=== PATIENT | male | born 1970 | race Caucasian/White ===

== ENCOUNTER 2017-06-07 14:29 | Emergency (ER) | payer OTHER ==
[~2017-06-07 14:29] MED LIST: CHLO10 PO; HYDR-3533 PO; LIDO5T TD; MOTR200T PO
[2017-06-07 14:31] VITALS: BP 113/66; PULSE 109; RESP 15; TEMP 98.5; O2SAT 97
--- NOTE | 2017-06-07 15:01 | PD ---
Physical Exam Time Seen by Provider: 14:59 Narrative 46 y/o male here for evaluation of 2 weeks of loose stool, vomiting, cp, abdominal pain, weakness. Seen at [facility] and reportedly told that he may have colon cancer but he has not followed up for further workup. He reports that he has been "self medicating" with alcohol. Vital signs reviewed. Seen at triage desk. Awaiting bed placement. Data Data Last Documented VS Vital Signs Date Time Temp Pulse Resp B/P Pulse Ox O2 Delivery O2 Flow Rate FiO2 06/07/17 14:31 98.5 109 15 113/66 97 Orders Electrocardiogram (06/07/17 15:01) Ckmb (Isoenzyme) Profile (06/07/17 15:) Complete Blood Count With Diff (06/07/17 15:) Comprehensive Metabolic Panel (06/07/17 15:01) Magnesium (Mg) (06/07/17 15:01) Prothrombin Time / Inr (Pt) (06/07/17 15:01) Act Partial Throm Time (Ptt) (06/07/17 15:) Troponin I (06/07/17 15:01) Lipase (06/07/17 15:01) Urinalysis - C+S If Indicated (06/07/17 15:01) MDM Medical Record Reviewed: Yes Supervised Visit with JO ANN: Puneet Barney Jun 07, 2017 15:01
--- NOTE | 2017-06-07 15:36 | PD ---
HPI Chief Complaint: GI Complaint Time Seen by Provider: 15:36 Travel History International Travel<30 days: No Contact w/Intl Traveler<30days: No Traveled to known affect area: No History of Present Illness HPI 36-year-old male presents to the emergency for evaluation of right lower, right upper, and left upper abdominal pain. Patient states he was seen and evaluated at a [facility] for this and told that he had colon cancer but he did not follow-up. Patient states he has had a 30 pound weight loss in the last 6 months. He states that he is nauseous and vomits everyday. Reports remote alcohol abuse history. States that he has chronic pancreatitis. Denies any fever or chills. No other symptoms to report. PFSH Past Medical History Blood Disorders: No Anxiety: Yes Depression: Yes Heart Rhythm Problems: No Cancer: No Cardiovascular Problems: Yes High Cholesterol: Yes Chest Pain: Yes Congestive Heart Failure: No Diminished Hearing: No Endocrine: No Gastrointestinal Disorders: Yes (vomits frequently(while drinking)) Genitourinary: Yes (hesistancy) Hypertension: Yes Immune Disorder: No Musculoskeletal: Yes (back pain) Neurologic: No Psychiatric: Yes Reproductive: No Respiratory: No Pancreatitis: Yes Past Surgical History Genitourinary Surgery: Yes (VASECTOMY) Other Surgery: Yes (right thumb reattachment) Social History Alcohol Use: Yes ( 2 pints of vodka daily) Tobacco Use: Yes Substance Use: No Allergies-Medications (Allergen,Severity, Reaction): Coded Allergies: No Known Allergies (Unverified , 11/26/15) Reported Meds & Prescriptions Reported Meds & Active Scripts Active Phenergan (Promethazine HCl) 25 Mg Tablet 25 Mg PO Q6H PRN Bentyl (Dicyclomine HCl) 10 Mg Cap 10 Mg PO TID PRN Reported Lortab (Hydrocodone-Acetaminophen) 10-325 Mg Tab 1 Tab PO Q4H PRN Review of Systems Except as stated in HPI: all other systems reviewed are Neg Physical Exam Narrative GENERAL: Well-nourished male patient, in no acute distress SKIN: Focused skin assessment warm/dry. HEAD: Atraumatic. Normocephalic. EYES: Pupils equal and round. No scleral icterus. No injection or drainage. ENT: No nasal bleeding or discharge. Mucous membranes pink and moist. NECK: Trachea midline. No JVD. CARDIOVASCULAR: Tachycardic rate and rhythm. No murmur appreciated. RESPIRATORY: No accessory muscle use. Clear to auscultation. Breath sounds equal bilaterally. GASTROINTESTINAL: Abdomen soft, upper quadrant tenderness with palpation.. Hepatic and splenic margins not palpable. MUSCULOSKELETAL: No obvious deformities. No clubbing. No cyanosis. No edema. NEUROLOGICAL: Awake and alert. No obvious cranial nerve deficits. Motor grossly within normal limits. Normal speech. PSYCHIATRIC: Appropriate mood and affect; insight and judgment normal. Data Data Last Documented VS Vital Signs Date Time Temp Pulse Resp B/P Pulse Ox O2 Delivery O2 Flow Rate FiO2 06/07/17 18:42 79 18 120/75 99 06/07/17 16:27 Room Air 06/07/17 14:31 98.5 Orders Electrocardiogram (06/07/17 15:01) Ckmb (Isoenzyme) Profile (06/07/17 15:01) Complete Blood Count With Diff (06/07/17 15:01) Comprehensive Metabolic Panel (06/07/17 15:01) Magnesium (Mg) (06/07/17 15:01) Prothrombin Time / Inr (Pt) (06/07/17 15:01) Act Partial Throm Time (Ptt) (06/07/17 15:01) Troponin I (06/07/17 15:01) Lipase (06/07/17 15:01) Urinalysis - C+S If Indicated (06/07/17 15:01) Ct Abd/Pel W Iv Contrast(Rout) (06/07/17 ) CKMB (06/07/17 15:30) CKMB% (06/07/17 15:30) Iohexol 350 Inj (Omnipaque 350 Inj) (06/07/17 17:14) Ketorolac Inj (Toradol Inj) (06/07/17 17:45) Sodium Chlor 0.9% 1000 Ml Inj (Ns 1000 M (06/07/17 17:45) Labs Laboratory Tests Test 06/07/17 06/07/17 15:30 15:40 White Blood Count 4.6 TH/MM3 Red Blood Count 3.89 MIL/MM3 Hemoglobin 12.3 GM/DL Hematocrit 36.1 % Mean Corpuscular Volume 92.7 FL Mean Corpuscular Hemoglobin 31.6 PG Mean Corpuscular Hemoglobin 34.0 % Concent Red Cell Distribution Width 17.2 % Platelet Count 173 TH/MM3 Mean Platelet Volume 7.1 FL Neutrophils (%) (Auto) 53.8 % Lymphocytes (%) (Auto) 38.3 % Monocytes (%) (Auto) 6.9 % Eosinophils (%) (Auto) 0.5 % Basophils (%) (Auto) 0.5 % Neutrophils # (Auto) 2.5 TH/MM3 Lymphocytes # (Auto) 1.8 TH/MM3 Monocytes # (Auto) 0.3 TH/MM3 Eosinophils # (Auto) 0.0 TH/MM3 Basophils # (Auto) 0.0 TH/MM3 CBC Comment DIFF FINAL Differential Comment Prothrombin Time 11.1 SEC Prothromb Time International 1.0 RATIO Ratio Activated Partial 27.2 SEC Thromboplast Time Sodium Level 137 MEQ/L Potassium Level 4.1 MEQ/L Chloride Level 101 MEQ/L Carbon Dioxide Level 24.3 MEQ/L Anion Gap 12 MEQ/L Blood Urea Nitrogen 6 MG/DL Creatinine 0.80 MG/DL Estimat Glomerular Filtration 103 ML/MIN Rate Random Glucose 100 MG/DL Calcium Level 9.1 MG/DL Magnesium Level 1.9 MG/DL Total Bilirubin 0.9 MG/DL Aspartate Amino Transf 71 U/L (AST/SGOT) Alanine Aminotransferase 25 U/L (ALT/SGPT) Alkaline Phosphatase 91 U/L Total Creatine Kinase 122 U/L Creatine Kinase MB 0.9 NG/ML Troponin I LESS THAN 0.02 NG/ML Total Protein 8.0 GM/DL Albumin 3.5 GM/DL Lipase 49 U/L Urine Color YELLOW Urine Turbidity CLEAR Urine pH 5.5 Urine Specific [place] 1.029 Urine Protein TRACE mg/dL Urine Glucose (UA) NEG mg/dL Urine Ketones TRACE mg/dL Urine Occult Blood NEG Urine Nitrite NEG Urine Bilirubin NEG Urine Urobilinogen LESS THAN 2.0 MG/DL Urine Leukocyte Esterase NEG Urine WBC 1 /hpf Urine Squamous Epithelial <1 /hpf Cells Urine Hyaline Casts 20 /lpf Urine Mucus MOD /lpf Microscopic Urinalysis Comment CULT NOT INDICATED MDM Medical Decision Making Medical Screen Exam Complete: Yes Emergency Medical Condition: Yes Medical Record Reviewed: Yes Differential Diagnosis Gastritis versus gastroenteritis versus biliary colic versus UTI versus renal calculi Narrative Course 46-year-old male presents to emergency department for evaluation of abdominal pain. Patient appears without distress. He is mildly tachycardic. Heart rate normalizes after IV normal saline bolus. Laboratory Tests Test 06/07/17 06/07/17 15:30 15:40 White Blood Count 4.6 TH/MM3 Red Blood Count 3.89 MIL/MM3 Hemoglobin 12.3 GM/DL Hematocrit 36.1 % Mean Corpuscular Volume 92.7 FL Mean Corpuscular Hemoglobin 31.6 PG Mean Corpuscular Hemoglobin 34.0 % Concent Red Cell Distribution Width 17.2 % Platelet Count 173 TH/MM3 Mean Platelet Volume 7.1 FL Neutrophils (%) (Auto) 53.8 % Lymphocytes (%) (Auto) 38.3 % Monocytes (%) (Auto) 6.9 % Eosinophils (%) (Auto) 0.5 % Basophils (%) (Auto) 0.5 % Neutrophils # (Auto) 2.5 TH/MM3 Lymphocytes # (Auto) 1.8 TH/MM3 Monocytes # (Auto) 0.3 TH/MM3 Eosinophils # (Auto) 0.0 TH/MM3 Basophils # (Auto) 0.0 TH/MM3 CBC Comment DIFF FINAL Differential Comment Prothrombin Time 11.1 SEC Prothromb Time International 1.0 RATIO Ratio Activated Partial 27.2 SEC Thromboplast Time Sodium Level 137 MEQ/L Potassium Level 4.1 MEQ/L Chloride Level 101 MEQ/L Carbon Dioxide Level 24.3 MEQ/L Anion Gap 12 MEQ/L Blood Urea Nitrogen 6 MG/DL Creatinine 0.80 MG/DL Estimat Glomerular Filtration 103 ML/MIN Rate Random Glucose 100 MG/DL Calcium Level 9.1 MG/DL Magnesium Level 1.9 MG/DL Total Bilirubin 0.9 MG/DL Aspartate Amino Transf 71 U/L (AST/SGOT) Alanine Aminotransferase 25 U/L (ALT/SGPT) Alkaline Phosphatase 91 U/L Total Creatine Kinase 122 U/L Creatine Kinase MB 0.9 NG/ML Troponin I LESS THAN 0.02 NG/ML Total Protein 8.0 GM/DL Albumin 3.5 GM/DL Lipase 49 U/L Urine Color YELLOW Urine Turbidity CLEAR Urine pH 5.5 Urine Specific [place] 1.029 Urine Protein TRACE mg/dL Urine Glucose (UA) NEG mg/dL Urine Ketones TRACE mg/dL Urine Occult Blood NEG Urine Nitrite NEG Urine Bilirubin NEG Urine Urobilinogen LESS THAN 2.0 MG/DL Urine Leukocyte Esterase NEG Urine WBC 1 /hpf Urine Squamous Epithelial <1 /hpf Cells Urine Hyaline Casts 20 /lpf Urine Mucus MOD /lpf Microscopic Urinalysis Comment CULT NOT INDICATED Last Impressions Abdomen/Pelvis CT 06/07/17 0000 Signed Impressions: Service Date/Time: Wednesday, June 07, 2017 17:24 - CONCLUSION: Chronic changes of the lower thoracic and upper lumbar spine with mild wedging of the L1 vertebrae chronic in nature, otherwise unremarkable. Toya Hawkins MD I have discussed findings with the patient. He is discharged to follow-up with a nut chopper. He agrees to return immediately with any acute worsening symptoms. Diagnosis Primary Impression: Gastritis Qualified Code: K29.20 - Chronic alcoholic gastritis without hemorrhage Additional Impressions: Diarrhea Qualified Code: R19.7 - Diarrhea, unspecified type Abdominal pain Qualified Code: R10.84 - Generalized abdominal pain Alcohol abuse Referrals: [facility] (Out patient) Nutrition Consultant Primary Care Physician Patient Instructions: Diet for Stomach Ulcers and Gastritis (ED), General Instructions Additional Instructions: [place]win diet Advance as tolerated Follow-up with the primary care provider Avoid alcohol use Return immediately with any acute worsening of symptoms Med/Other Pt SpecificInfo: Prescription(s) given Scripts Promethazine (Phenergan)25 Mg [id number] Mg PO Q6H PRN (NAUSEA OR VOMITING) #12 TAB Ref 0 Prov:Nannette Land 06/07/17 Dicyclomine (Bentyl)10 Mg Cap10 Mg PO TID PRN (Bowel Management) #15 CAP Ref 0 Prov:Nannette Land 06/07/17 Disposition: 01 DISCHARGE HOME Condition: Stable Nannette Land Jun 07, 2017 15:36
[2017-06-07 15:48] LABS: AUTOMATED NEUTROPHIL # 2.5 TH/MM3 (1.8-7.7); BASOPHIL % 0.5 % (0.0-2.0); EOSINOPHIL % 0.5 % (0.0-4.0); HEMATOCRIT 36.1 % (39.0-51.0); HEMO FLAGS DIFF FINAL; LYMPH % 38.3 % (9.0-44.0); LYMPHOCYTE # 1.8 TH/MM3 (1.0-4.8); MEAN CELL VOLUME 92.7 FL (80.0-100.0); MEAN CORPUSCULAR HEMOGLOBIN 31.6 PG (27.0-34.0); MONO % 6.9 % (0.0-8.0); NEUT % 53.8 % (16.0-70.0); PLATELET COUNT 173 TH/MM3 (150-450); RED BLOOD COUNT 3.89 MIL/MM3 (4.50-5.90); RED CELL DISTRIBUTION WIDTH 17.2 % (11.6-17.2); WHITE BLOOD COUNT 4.6 TH/MM3 (4.0-11.0)
[2017-06-07 15:55] LABS: BLOOD, URINE NEG (NEG); COMMENT (UR) CULT NOT INDICATED; CULTURE IF INDICATED CULT NOT INDICATED; GLUCOSE,URINE NEG (NEG); HYALINE CAST, URINE 20 /lpf (RARE); KETONE, URINE TRACE mg/dL (NEG); MUCUS URINE MOD /lpf (OCC); NITRITE,URINE NEG (NEG); PH, URINE 5.5 (5.0-8.5); SQUAMOUS EPITHELIAL CELL URINE <1 /hpf (0-5); URINE COLOR YELLOW (YELLW/STRAW)
[2017-06-07 16:03] LABS: ALT (GPT) 25 U/L (12-78)
[2017-06-07 16:04] LABS: APTT (PATIENT) 27.2 SEC (24.3-30.1); PROTHROMBIN TIME - PATIENT 11.1 SEC (9.8-11.6)
[2017-06-07 16:06] LABS: ANION GAP 12 MEQ/L (5-15); AST (GOT) 71 U/L (15-37); BICARBONATE 24.3 MEQ/L (21.0-32.0); BLOOD UREA NITROGEN 6 MG/DL (7-18); CHLORIDE 101 MEQ/L (98-107); GLOMERULAR FILTRATION RATE 103 ML/MIN (>89); MAGNESIUM 1.9 MG/DL (1.5-2.5); POTASSIUM 4.1 MEQ/L (3.5-5.1); SODIUM (NA) 137 MEQ/L (136-145)
[2017-06-07 16:08] LABS: ALKALINE PHOSPHATASE 91 U/L (45-117); CREATINE KINASE 122 U/L (39-308); TOTAL BILIRUBIN ADULT 0.9 MG/DL (0.2-1.0)
[2017-06-07 16:20] LABS: CKMB 0.9 NG/ML (0.5-3.6)
[2017-06-07 16:27] VITALS: BP 157/109; PULSE 83; RESP 18; O2SAT 96
[2017-06-07] MEDS ORDERED: HYDR-3535 PO (17:05)
[2017-06-07] MEDS ORDERED: IOHEXOL 350 MG/ML 10 ML VIAL (for RAD DIAG) IV ONE (17:14)
[2017-06-07] MEDS ORDERED: KETOROLAC TROMETHAMINE 30 MG/ML (IVP) VIAL IV PUSH ONE (17:45)
[2017-06-07] MEDS ORDERED: SODIUM CHLOR 0.9% 1000 ML INJ 1,000 ML IV ONE (17:45)
--- NOTE | 2017-06-07 17:56 | RADRPT ---
EXAM DATE/TIME: 06/07/2017 17:24 [facility] COMPARISON: No previous studies available for comparison. INDICATIONS : Lower abdomen pain with nausea, vomiting and diarrhea. IV CONTRAST: 95 cc Omnipaque 350 (iohexol) IV ORAL CONTRAST: No oral contrast ingested. RADIATION DOSE: 13.25 CTDIvol (mGy) MEDICAL HISTORY : Pancreatitis. Hypertension. SURGICAL HISTORY : None. ENCOUNTER: Initial ACUITY: 1 week PAIN SCALE: 5/10 LOCATION: Bilateral lower quadrant TECHNIQUE: Volumetric scanning of the abdomen and pelvis was performed. Using automated exposure control and ad justment of the mA and/or kV according to patient size, radiation dose was kept as low as reasonably achievable to obtain optimal diagnostic quality images. DICOM format image data is available electro nically for review and comparison. FINDINGS: CT Abdomen: The liver, spleen, left kidney, adrenals are unremarkable. There is no evidence for any a ppreciable pathological adenopathy, free fluid, or bowel obstruction. The pancreas is very atrophic in appearance and most of the body and tail are basically absent with calcifications in residual panc reatic tissue in the head of the pancreas. Incidental note is made of a subcentimeter cyst in the rig ht kidney. The L1 transverse processes are not fused may be on a congenital basis or due to old traum a. There is slight deformity of multiple lower thoracic and upper lumbar endplates chronic in nature with anterior wedging of L1 vertebrae. CT pelvis: There is no evidence for mass, abscess formation, or any significant adenopathy within the pelvis. The prostate gland is inhomogeneous and measures 3.4 x 4.8 cm in AP and transverse diameters and nonspecific. CONCLUSION: Chronic changes of the lower thoracic and upper lumbar spine with mild wedging of the L1 vertebrae chronic in nature, otherwise unremarkable. Toya Hawkins MD on June 07, 2017 at 17:51 Board Certified Radiologist. This report was verified electronically.
[2017-06-07] MEDS ORDERED: PROM25TA10 PO (18:03)
[2017-06-07] MEDS ORDERED: DICY10 PO (18:03)
[2017-06-07 18:42] VITALS: BP 120/75
--- NOTE | 2017-06-07 21:55 | EKG ---
Date Performed: 06/07/2017 Time Performed: 15:48:13 PTAGE: 46 years EKG: Sinus rhythm NORMAL ECG PREVIOUS TRACING : 11/26/2015 03.01 Compared to prior tracing no significant change DOCTOR: Dmitri Hansen Interpretating Date/Time 06/07/2017 21:54:37
== END 2017-06-07 19:23 | disposition home or self-care (01) ==
LOC: NEPC 14:29
DX: K29.20 Alcoholic gastritis without bleeding (principal); R19.7 Diarrhea, unspecified; F10.10 Alcohol abuse, uncomplicated; I10 Essential (primary) hypertension; Z72.0 Tobacco use
CPT/HCPCS: 74177; 80053; 81001; 82550; 82552; 83690; 83735; 84484; 85025; 85610; 85730; 93005; 96374; 99285; J1885; J7030; Q9967

== ENCOUNTER 2017-07-17 13:22 | Emergency (ER) | payer SELFPAY ==
[~2017-07-17] VITALS: Ht 182.9 cm; Wt 78.2 kg
[~2017-07-17 13:22] MED LIST changes: -CHLO10 PO; +DICY10 PO; -HYDR-3533 PO; +HYDR-3535 PO; -LIDO5T TD; -MOTR200T PO; +PROM25TA10 PO
[2017-07-17] MEDS ORDERED: IOHEXOL 350 MG/ML 10 ML VIAL (for RAD DIAG) IVCONTRAST ONE (13:23)
[2017-07-17 13:51] VITALS: BP 144/85; PULSE 77; RESP 18; TEMP 98.8; O2SAT 99
[2017-07-17] MEDS ORDERED: LORA-392 PO (13:56)
--- NOTE | 2017-07-17 15:11 | PD ---
HPI Chief Complaint: Abdominal Pain Time Seen by Provider: 15:04 Travel History International Travel<30 days: No Contact w/Intl Traveler<30days: No Traveled to known affect area: No History of Present Illness HPI Patient presents with complaints of abdominal pain for approximately one week. Reports frequent episodes of pancreatitis. Last alcoholic beverage 5 days ago. Reports nausea and vomiting. Reports loose stools. Last bowel movement 3-4 days ago. States that it was dark and loose. Denies any gross blood per emesis or stool. Reports hematuria without frequency or pain. States he took his last Percocet at 9 AM this morning. Reports a history of anxiety. States evaluation and workup at [facility] today but they were not treating him right so he left AMA. [facility] Past Medical History Blood Disorders: No Anxiety: Yes Depression: Yes Heart Rhythm Problems: No Cancer: No Cardiovascular Problems: Yes High Cholesterol: Yes Chest Pain: Yes Congestive Heart Failure: No Diminished Hearing: No Endocrine: No Gastrointestinal Disorders: Yes (vomits frequently(while drinking)) Genitourinary: Yes (hesistancy) Hypertension: Yes Immune Disorder: No Musculoskeletal: Yes (back pain) Neurologic: No Psychiatric: Yes Reproductive: No Respiratory: No Immunizations Current: Yes Pancreatitis: Yes Influenza Vaccination: Yes ?: Not Past Surgical History Genitourinary Surgery: Yes (VASECTOMY) Other Surgery: Yes (right thumb reattachment) Social History Alcohol Use: Yes ( 2 pints of vodka daily, ETOH ABUSE ) Tobacco Use: Yes (DIP ) Substance Use: No Allergies-Medications (Allergen,Severity, Reaction): Coded Allergies: No Known Allergies (Unverified , 11/26/15) Reported Meds & Prescriptions Reported Meds & Active Scripts Active Phenergan (Promethazine HCl) 25 Mg Tablet 25 Mg PO Q6H PRN Bentyl (Dicyclomine HCl) 10 Mg Cap 10 Mg PO TID PRN Reported Ativan (Lorazepam) 0.5 Mg Tab 0.5 Mg PO Q6H PRN Lortab (Hydrocodone-Acetaminophen) 10-325 Mg Tab 1 Tab PO Q4H PRN Review of Systems General / Constitutional: No: Fever Eyes: No: Visual changes HENT: No: Headaches Cardiovascular: No: Chest Pain or Discomfort Respiratory: No: Shortness of Breath Gastrointestinal: Positive: Nausea, Vomiting, Diarrhea, Abdominal Pain Genitourinary: Positive: Hematuria, No: Dysuria Musculoskeletal: No: Pain Skin: No Rash Neurologic: No: Weakness Psychiatric: No: Depression Endocrine: No: Polydipsia Hematologic/Lymphatic: No: Easy Bruising Physical Exam Narrative GENERAL: Poorly nourished SKIN: Focused skin assessment warm/dry. HEAD: Normocephalic. EYES: No scleral icterus. No injection or drainage. NECK: Supple, trachea midline. No JVD or lymphadenopathy. CARDIOVASCULAR: Regular rate and rhythm without murmurs, gallops, or rubs. RESPIRATORY: Breath sounds equal bilaterally. No accessory muscle use. GASTROINTESTINAL: Abdomen soft, diffusely tender over the entire abdomen nondistended. MUSCULOSKELETAL: No cyanosis, or edema. BACK: Nontender without obvious deformity. No CVA tenderness. Data Data Last Documented VS Vital Signs Date Time Temp Pulse Resp B/P (MAP) Pulse Ox O2 Delivery O2 Flow Rate FiO2 07/17/17 15:55 69 16 121/88 (99) 96 07/17/17 13:51 98.8 Orders Orders Complete Blood Count With Diff (07/17/17 15:04) Comprehensive Metabolic Panel (07/17/17 15:04) Lipase (07/17/17 15:04) Lactic Acid (07/17/17 15:04) Urinalysis - C+S If Indicated (07/17/17 15:04) Ct Abd/Pel W Iv Contrast(Rout) (07/17/17 15:04) Iv Access Insert/Monitor (07/17/17 15:04) Ecg Monitoring (07/17/17 15:04) Oximetry (07/17/17 15:04) NPO (07/17/17 15:04) Hydromorphone Pf Inj (Dilaudid Pf Inj) (07/17/17 15:15) Ondansetron Inj (Zofran Inj) (07/17/17 15:15) Pantoprazole Inj (Protonix Inj) (07/17/17 15:15) Sodium Chloride 0.9% Flush (Ns Flush) (07/17/17 15:15) Famotidine Inj (Pepcid Inj) (07/17/17 15:15) Oral Contrast - Adult (07/17/17 15:09) Diatrizoate Liq ( Gastroview Liq) (07/17/17 15:33) Labs Laboratory Tests Test 07/17/17 15:30 07/17/17 15:43 [facility] Medical Decision Making Medical Screen Exam Complete: Yes Emergency Medical Condition: Yes Differential Diagnosis Pancreatitis, small bowel obstruction, gastroenteritis, colitis Narrative Course Assessment and plan discussed with patient at bedside. Physician Communication Physician Communication Case discussed and care transferred to Adán Mi MD Jul 17, 2017 15:11
[2017-07-17] MEDS ORDERED: FAMOTIDINE 20 MG/2 ML VIAL IV PUSH ONE (15:15)
[2017-07-17] MEDS ORDERED: SODIUM CHLORIDE 0.9% FLUSH 10 ML FLUSH IV FLUSH PRN (15:15)
[2017-07-17] MEDS ORDERED: HYDROmorphone HCL PF 2 MG/ML VIAL IVS ONE (15:15)
[2017-07-17] MEDS ORDERED: PANTOPRAZOLE SODIUM 40 MG VIAL IVP ONE (15:15)
[2017-07-17] MEDS ORDERED: ONDANSETRON HCL 4 MG/2 ML VIAL IVP ONE (15:15)
[2017-07-17] MEDS ORDERED: DIATRIZOATE MEGLUM/DIATRIZOATE SOD 9 ML CUP ONE (15:33)
[2017-07-17 15:55] VITALS: BP 121/88; PULSE 69; RESP 16; O2SAT 96
[2017-07-17 15:55] LABS: BLOOD, URINE LARGE (NEG); GLUCOSE,URINE NEG (NEG); KETONE, URINE NEG (NEG); NITRITE,URINE NEG (NEG); PH, URINE 5.5 (5.0-8.5)
[2017-07-17 16:00] LABS: CHLORIDE 92 MEQ/L (98-107); SODIUM (NA) 127 MEQ/L (136-145)
[2017-07-17 16:03] LABS: ANION GAP 9 MEQ/L (5-15); BICARBONATE 26.5 MEQ/L (21.0-32.0)
[2017-07-17 16:04] LABS: BLOOD UREA NITROGEN 10 MG/DL (7-18)
[2017-07-17 16:06] LABS: ALT (GPT) 97 U/L (12-78); AST (GOT) 350 U/L (15-37); GLOMERULAR FILTRATION RATE 100 ML/MIN (>89)
[2017-07-17 16:08] LABS: TOTAL BILIRUBIN ADULT 2.5 MG/DL (0.2-1.0)
[2017-07-17 16:09] LABS: ALKALINE PHOSPHATASE 228 U/L (45-117)
[2017-07-17 16:18] LABS: METHOD OF COLLECTION CLEAN CATCH; URINE COLOR YELLOW (YELLW/STRAW)
[2017-07-17 16:25] LABS: SQUAMOUS EPITHELIAL CELL URINE 0-5 /hpf (0-5)
[2017-07-17 16:26] LABS: COMMENT (UR) CULT NOT INDICATED; CULTURE IF INDICATED CULT NOT INDICATED
[2017-07-17 16:43] LABS: AUTOMATED NEUTROPHIL # 2.1 TH/MM3 (1.8-7.7); BASOPHIL % 1.2 % (0.0-2.0); EOSINOPHIL % 0.8 % (0.0-4.0); HEMATOCRIT 34.2 % (39.0-51.0); LYMPH % 38.8 % (9.0-44.0); LYMPHOCYTE # 1.5 TH/MM3 (1.0-4.8); MEAN CELL VOLUME 102.8 FL (80.0-100.0); MEAN CORPUSCULAR HEMOGLOBIN 34.8 PG (27.0-34.0); MEAN CORPUSCULAR HGB CONC 33.8 % (32.0-36.0); MONO % 8.2 % (0.0-8.0); PLATELET COUNT 82 TH/MM3 (150-450); RED BLOOD COUNT 3.33 MIL/MM3 (4.50-5.90); RED CELL DISTRIBUTION WIDTH 17.7 % (11.6-17.2); WHITE BLOOD COUNT 3.9 TH/MM3 (4.0-11.0)
[2017-07-17 16:52] LABS: HEMO FLAGS AUTO DIFF
[2017-07-17 17:07] LABS: POTASSIUM 4.3 MEQ/L (3.5-5.1)
[2017-07-17 17:13] LABS: PLATELET ESTIMATE SMEAR LOW (NORMAL); PLATELET MORPHOLOGY NORMAL (NORMAL); SCAN/DIFF AUTO DIFF CONFIRMED
[2017-07-17 17:41] VITALS: BP 119/79; PULSE 60; O2SAT 100
--- NOTE | 2017-07-17 17:47 | RADRPT ---
EXAM DATE/TIME: 07/17/2017 17:20 [facility] COMPARISON: CT ABDOMEN & PELVIS W CONTRAST, June 07, 2017, 17:24. INDICATIONS : Mid abdominal pain radiaitng to back and down left leg. IV CONTRAST: 90 cc Omnipaque 350 (iohexol) IV ORAL CONTRAST: Prescribed oral contrast ingested. RADIATION DOSE: 9.92 CTDIvol (mGy) MEDICAL HISTORY : Hypertension. Hypercholesterolemia. SURGICAL HISTORY : None. ENCOUNTER: Initial ACUITY: 1 day PAIN SCALE: 5/10 LOCATION: middle abdomen TECHNIQUE: Volumetric scanning of the abdomen and pelvis was performed. Using automated exposure control and adjustment of the mA and/or kV according to patient size, radiation dose was kept as low as reasonably achievable to obtain optimal diagnostic quality images. DICOM format image data is av ailable electronically for review and comparison. FINDINGS: CT Abdomen: The spleen, kidneys, adrenals are unremarkable. There are calcifications in the head of t he pancreas and the body and tail of the pancreas is significantly atrophic basically absent. There i s no pancreatic mass. The liver is fatty without focal lesions or technique. There is no evidence fo r any appreciable pathological adenopathy, free fluid, or bowel obstruction. There is probable flow artifact in the SMV and parts of the portal vein. Again noted are slight wedging of multiple vertebra e are chronic changes of the patient's spine. CT pelvis: There is no evidence for mass, abscess formation, or any significant adenopathy within the pelvis. The prostate gland is inhomogeneous and measures 3.3 x 3.6 cm in AP and transverse diameters and nonspecific. There is moderate amount of stool throughout the colon. CONCLUSION: No appreciable change. Toya Hawkins MD on July 17, 2017 at 17:39 Board Certified Radiologist. This report was verified electronically.
[2017-07-17] MEDS ORDERED: CHLO25CA9 PO (18:20)
--- NOTE | 2017-07-17 18:23 | PD ---
Physical Exam Date Seen by Provider: Jul 17, 2017 Time Seen by Provider: 18:21 Narrative This 46-year-old male had presented with complaint of abdominal pain. He has a history of pancreatitis. He was seen initially by Dr. Pandya. His lipase is normal. He does have some elevation of his liver function tests with a total bilirubin of 2.5, AST of 350 and ALT of 97. He does drink alcohol. His CT scan shows calcifications in the pancreas but otherwise has not changed from previous scans. The patient is requesting pain medicine but I have told her that given pain medicine. He is complaining also is going to alcohol withdrawal. I will prescribe some Librium. I have told the patient that I think his problems are related to alcohol and that he needs to go to detox at [facility]. Data Data Last Documented VS Vital Signs Date Time Temp Pulse Resp B/P (MAP) Pulse Ox O2 Delivery O2 Flow Rate FiO2 07/17/17 17:41 60 119/79 (92) 100 07/17/17 15:55 16 07/17/17 13:51 98.8 Orders Orders Complete Blood Count With Diff (07/17/17 15:04) Comprehensive Metabolic Panel (07/17/17 15:04) Lipase (07/17/17 15:04) Lactic Acid (07/17/17 15:04) Urinalysis - C+S If Indicated (07/17/17 15:04) Ct Abd/Pel W Iv Contrast(Rout) (07/17/17 15:04) Iv Access Insert/Monitor (07/17/17 15:04) Ecg Monitoring (07/17/17 15:04) Oximetry (07/17/17 15:04) NPO (07/17/17 15:04) Hydromorphone Pf Inj (Dilaudid Pf Inj) (07/17/17 15:15) Ondansetron Inj (Zofran Inj) (07/17/17 15:15) Pantoprazole Inj (Protonix Inj) (07/17/17 15:15) Sodium Chloride 0.9% Flush (Ns Flush) (07/17/17 15:15) Famotidine Inj (Pepcid Inj) (07/17/17 15:15) Oral Contrast - Adult (07/17/17 15:09) Diatrizoate Liq (Md Gastroview Liq) (07/17/17 15:33) Iohexol 350 Inj (Omnipaque 350 Inj) (07/17/17 13:23) Chlordiazepoxide (Librium) (07/17/17 18:30) Labs Laboratory Tests Test 07/17/17 15:30 07/17/17 15:43 07/17/17 16:35 Urine Collection Type CLEAN CATCH Urine Color YELLOW Urine Turbidity CLEAR Urine pH 5.5 Urine Specific [place] 1.008 Urine Protein NEG mg/dL Urine Glucose (UA) NEG mg/dL Urine Ketones NEG mg/dL Urine Occult Blood LARGE Urine Nitrite NEG Urine Bilirubin NEG Urine Leukocyte Esterase NEG Urine RBC 10-14 /hpf Urine Squamous Epithelial Cells 0-5 /hpf Microscopic Urinalysis Comment CULT NOT INDICATED Urine Collection Time 15:30 Blood Urea Nitrogen 10 MG/DL Creatinine 0.82 MG/DL Random Glucose 103 MG/DL Total Protein 7.5 GM/DL Albumin 3.2 GM/DL Calcium Level 8.7 MG/DL Alkaline Phosphatase 228 U/L Aspartate Amino Transf (AST/SGOT) 350 U/L Alanine Aminotransferase (ALT/SGPT) 97 U/L Total Bilirubin 2.5 MG/DL Sodium Level 127 MEQ/L Potassium Level 4.3 MEQ/L Chloride Level 92 MEQ/L Carbon Dioxide Level 26.5 MEQ/L Anion Gap 9 MEQ/L Estimat Glomerular Filtration Rate 100 ML/MIN Lactic Acid Level 0.9 mmol/L Lipase 22 U/L White Blood Count 3.9 TH/MM3 Red Blood Count 3.33 MIL/MM3 Hemoglobin 11.6 GM/DL Hematocrit 34.2 % Mean Corpuscular Volume 102.8 FL Mean Corpuscular Hemoglobin 34.8 PG Mean Corpuscular Hemoglobin Concent 33.8 % Red Cell Distribution Width 17.7 % Platelet Count 82 TH/MM3 Mean Platelet Volume 6.8 FL Neutrophils (%) (Auto) 51.0 % Lymphocytes (%) (Auto) 38.8 % Monocytes (%) (Auto) 8.2 % Eosinophils (%) (Auto) 0.8 % Basophils (%) (Auto) 1.2 % Neutrophils # (Auto) 2.1 TH/MM3 Lymphocytes # (Auto) 1.5 TH/MM3 Monocytes # (Auto) 0.3 TH/MM3 Eosinophils # (Auto) 0.0 TH/MM3 Basophils # (Auto) 0.0 TH/MM3 CBC Comment AUTO DIFF Differential Comment AUTO DIFF CONFIRMED Platelet Estimate LOW Platelet Morphology Comment NORMAL MDM Medical Record Reviewed: Yes Supervised Visit with JO ANN: No Differential Diagnosis Differential includes chronic alcohol abuse, chronic pancreatitis, gastritis Narrative Course Workup is negative. Patient is stable for discharge. He has having some tremors now and I will put her on some Librium awake and alert Diagnosis Primary Impression: Alcohol withdrawal Qualified Codes: F10.230 - Alcohol dependence with withdrawal, uncomplicated Additional Impression: Alcohol abuse Scripts Chlordiazepoxide HCl (Chlordiazepoxide HCl) 25 Mg Capsule 1 TAB PO Q6HR for TREMORS, #10 Prov: Luipllo Vegas MD 07/17/17 Disposition: DISCHARGE HOME Condition: Stable Lupillo Vegas MD Jul 17, 2017 18:23
[2017-07-17] MEDS ORDERED: chlordiazePOXIDE 25 MG CAP PO ONE (19:00)
== END 2017-07-17 19:38 | disposition home or self-care (01) ==
LOC: PHED 13:22
DX: F10.230 Alcohol dependence with withdrawal, uncomplicated (principal); E78.00 Pure hypercholesterolemia, unspecified; I10 Essential (primary) hypertension; Z87.19 Personal history of other diseases of the digestive system; Z72.0 Tobacco use
CPT/HCPCS: 74177; 80053; 81001; 83605; 83690; 85025; 96374; 96375; 99285; C9113; J1170; J2405; Q9963; Q9967